=== PATIENT | female | born 1950 | race Caucasian/White ===

== ENCOUNTER 2017-09-18 10:31 | Emergency (ER) | payer MEDICARE, MEDICAID ==
[~2017-09-18] VITALS: Ht 167.6 cm; Wt 78.0 kg
[2017-09-18 10:34] VITALS: BP 146/80
[2017-09-18] MEDS ORDERED: DULO20CA50 PO (11:33)
[2017-09-18] MEDS ORDERED: clonazepam PO (11:33)
[2017-09-18] MEDS ORDERED: zonisamide PO (11:33)
[2017-09-18] MEDS ORDERED: duloxetine PO (11:33)
[2017-09-18] MEDS ORDERED: lamotrigine PO (11:33)
[2017-09-18] MEDS ORDERED: SYN0.088T PO (11:33)
[2017-09-18] MEDS ORDERED: PENICILLIN VK PO (11:33)
[2017-09-18] MEDS ORDERED: [UNRECOGNIZED DRUG - OTHER] PO (11:33)
[2017-09-18] MEDS ORDERED: CLON-528 PO (11:33)
[2017-09-18] MEDS ORDERED: donepezil PO (11:33)
[2017-09-18] MEDS ORDERED: b12 PO (11:33)
[2017-09-18 11:37] LABS: BASOPHILS % (AUTO) 0.4 % (0-1); EOSINOPHILS # (AUTO) 0.1 X10'3 (0-0.9); EOSINOPHILS % (AUTO) 1.2 % (0-6); HEMATOCRIT 39.7 % (35.0-45.0); HEMOGLOBIN 13.7 g/dl (12.0-16.0); LYMPHOCYTES # (AUTO) 1.4 X10'3 (1.1-4.8); LYMPHOCYTES % (AUTO) 30.2 % (21-51); MEAN CORPUSCULAR HEMOGLOBIN 31.4 PG (27.0-31.0); MEAN CORPUSCULAR HGB CONC 34.5 % (33.0-36.5); MEAN CORPUSCULAR VOLUME 91.1 FL (78-98); MEAN PLATELET VOLUME 8.6 FL (7.4-10.4); MONOCYTES # (AUTO) 0.3 X10'3 (0-0.9); MONOCYTES % (AUTO) 7.5 % (2-12); NEUTROPHILS # (AUTO) 2.8 X10'3 (1.8-7.7); NEUTROPHILS % (AUTO) 60.7 % (42-75); PLATELET COUNT 218 X10'3 (140-440); RED BLOOD COUNT 4.35 X10'6 (4.20-5.60); RED CELL DISTRIBUTION WIDTH 13.8 % (11.5-14.5); WHITE BLOOD COUNT 4.6 X10'3 (4.5-11.0)
[2017-09-18 11:48] LABS: URINE AMPHETAMINE SCREEN NEGATIVE (Neg); URINE BARBITUATE SCREEN NEGATIVE (Neg); URINE BENZODIAZEPINES SCREEN NEGATIVE (Neg); URINE CANNABINOID SCREEN NEGATIVE (Neg); URINE COCAINE SCREEN NEGATIVE (Neg); URINE METHADONE SCREEN NEGATIVE (Neg); URINE OPIATE SCREEN NEGATIVE (Neg); URINE PHENCYCLIDINE SCREEN NEGATIVE (Neg)
[2017-09-18 12:01] LABS: ALANINE AMINOTRANSFERASE 25 U/L (12-78); ALBUMIN 4.3 G/DL (3.4-5.0); ALBUMIN/GLOBULIN RATIO 1.3 (1.1-1.5); ALKALINE PHOSPHATASE 70 IU/L (46-116); ANION GAP 8 (8-16); ASPARTATE AMINO TRANSFERASE 20 U/L (10-37); BILIRUBIN,TOTAL 0.5 MG/DL (0.1-1.0); BLOOD UREA NITROGEN 14 MG/DL (7-18); BUN/CREATININE RATIO 15.6 (6.6-38.0); CALCIUM 9.3 MG/DL (8.5-10.1); CHLORIDE 107 MMOL/L (99-107); GLUCOSE 94 MG/DL (70-104); POTASSIUM 3.6 MMOL/L (3.5-5.1); SODIUM 142 MMOL/L (135-145); TOTAL CARBON DIOXIDE 27.3 MMOL/L (24-32); TOTAL PROTEIN 7.6 G/DL (6.4-8.2); eGFR 62 ML/MIN
[2017-09-18 12:17] LABS: ETHANOL < 0.010 GM/DL (0.0-0.010)
[2017-09-18 12:22] LABS: CLARITY,URINE CLOUDY (Clear); COLOR,URINE YELLOW (Yellow); GLUCOSE, URINE NEGATIVE (Neg); KETONES,URINE NEGATIVE (Neg); LEUKOCYTE ESTERASE ,URINE NEGATIVE (Neg); NITRITES, URINE NEGATIVE (Neg); OCCULT BLOOD,URINE LARGE (Neg); PROTEIN,URINE NEGATIVE (Neg); UROBILINOGEN,URINE 0.2 E.U/dL (0.2-1.0)
[2017-09-18 12:30] LABS: UA COLLECTION TYPE CLN CATCH MIDSTREAM
[2017-09-18 12:31] LABS: SQUAMOUS EPITHELIAL CELL,UR FEW /LPF (FEW)
[2017-09-18 12:32] LABS: BACTERIA,URINE 1+ /HPF (Neg); RBC,URINE 50-100 /HPF (0-2); WBC,URINE 0-4 /HPF (0-4)
[2017-09-18] MEDS ORDERED: clonazePAM 0.5mg tablet PO SCH ×2 (13:00→21:00)
[2017-09-18] MEDS ORDERED: cyanocobalamin 500mcg tablet PO SCH (20:00)
[2017-09-18] MEDS ORDERED: lamoTRIgine 25mg tablet PO SCH (20:00)
[2017-09-18] MEDS ORDERED: penicillin V potassium 500mg tablet PO SCH (20:00)
[2017-09-18] MEDS ORDERED: duloxetine 20mg capsule.DR PO SCH (21:00)
[2017-09-18] MEDS ORDERED: donepezil 5mg tablet PO SCH (21:00)
[2017-09-19] MEDS ORDERED: cyanocobalamin 500mcg tablet PO SCH (08:00)
[2017-09-19] MEDS ORDERED: zonisamide 100mg capsule PO SCH (08:00)
[2017-09-19] MEDS ORDERED: [UNRECOGNIZED DRUG - OTHER] PO SCH (08:00)
[2017-09-19] MEDS ORDERED: duloxetine 20mg capsule.DR PO SCH (08:00)
[2017-09-19] MEDS ORDERED: levoTHYROXINE 88mcg tablet PO SCH (08:00)
== END 2017-09-18 17:17 ==
LOC: ER 10:32
DX: F03.90 Unspecified dementia, unspecified severity, without behavioral disturbance, psychotic disturbance, mood disturbance, and anxiety (principal); Z79.899 Other long term (current) drug therapy; F10.10 Alcohol abuse, uncomplicated; Z56.0 Unemployment, unspecified
CPT/HCPCS: 36415; 70450; 80053; 80305; 80320; 81001; 84443; 85025; 99285

== ENCOUNTER 2017-09-18 15:30 | Inpatient (IN) | payer MEDICARE, MEDICAID ==
[~2017-09-18] VITALS: Ht 165.1 cm; Wt 74.3 kg
[~2017-09-18 15:30] MED LIST: CLON-528 PO; DULO20CA50 PO; PENICILLIN VK PO; SYN0.088T PO; [UNRECOGNIZED DRUG - OTHER] PO; b12 PO; clonazepam PO; donepezil PO; duloxetine PO; lamotrigine PO; zonisamide PO
[2017-09-18 17:14] VITALS: BP 114/76
[2017-09-18 19:44] VITALS: BP 108/65
[2017-09-18] MEDS: donepezil 5mg tablet PO SCH (20:20)
[2017-09-18] MEDS: clonazePAM 0.5mg tablet PO SCH ×2 (20:21→20:24)
[2017-09-18] MEDS: duloxetine 20mg capsule.DR PO SCH (20:21)
[2017-09-18] MEDS: lamoTRIgine 25mg tablet PO SCH (20:21)
[2017-09-18] MEDS: ibuprofen 200mg tablet PO PRN (21:45)
[2017-09-19] MEDS: levoTHYROXINE 88mcg tablet PO SCH (07:30)
[2017-09-19 08:00] VITALS: BP 100/71
[2017-09-19] MEDS: duloxetine 20mg capsule.DR PO SCH ×2 (08:00→20:49)
[2017-09-19] MEDS: cyanocobalamin 500mcg tablet PO SCH (08:00)
[2017-09-19] MEDS: zonisamide 100mg capsule PO SCH (08:00)
[2017-09-19] MEDS: lamoTRIgine 25mg tablet PO SCH ×2 (08:00→20:49)
[2017-09-19] MEDS: clonazePAM 0.5mg tablet PO SCH ×4 (08:00→20:52)
[2017-09-19] MEDS ORDERED: [UNRECOGNIZED DRUG - OTHER] PO SCH (08:00)
[2017-09-19] MEDS: ibuprofen 200mg tablet PO PRN (12:06)
[2017-09-19 19:39] VITALS: BP 108/66
[2017-09-19] MEDS: donepezil 5mg tablet PO SCH (20:49)
[2017-09-19] MEDS: lactobacillus rhamnosus 10,000 MMU CELLS/CAPSULE PO SCH (20:49)
[2017-09-19] MEDS: penicillin V potassium 500mg tablet PO SCH (20:50)
[2017-09-20] MEDS: ibuprofen 200mg tablet PO PRN ×3 (04:09→16:09)
[2017-09-20] MEDS: levoTHYROXINE 88mcg tablet PO SCH (07:33)
[2017-09-20 08:19] VITALS: BP 118/62
[2017-09-20] MEDS: zonisamide 100mg capsule PO SCH (08:50)
[2017-09-20] MEDS: penicillin V potassium 500mg tablet PO SCH ×2 (08:50→20:29)
[2017-09-20] MEDS: lactobacillus rhamnosus 10,000 MMU CELLS/CAPSULE PO SCH ×2 (08:51→20:28)
[2017-09-20] MEDS: duloxetine 20mg capsule.DR PO SCH ×2 (08:51→20:29)
[2017-09-20] MEDS: cyanocobalamin 500mcg tablet PO SCH (08:51)
[2017-09-20] MEDS ORDERED: CLONAZEPAM 0.25 MG oral disentigrating tablet (ODT) PO ONE (09:30)
[2017-09-20] MEDS: lamoTRIgine 25mg tablet PO SCH ×2 (09:42→20:28)
[2017-09-20] MEDS: lamoTRIgine 100mg tablet PO SCH ×2 (09:43→20:29)
[2017-09-20] MEDS: CLONAZEPAM 0.25 MG oral disentigrating tablet (ODT) PO SCH ×2 (13:52→20:30)
[2017-09-20] MEDS: acetaminophen 325mg tablet PO PRN ×2 (13:54→21:53)
[2017-09-20 20:00] VITALS: BP 95/71
[2017-09-20] MEDS: donepezil 5mg tablet PO SCH (20:29)
[2017-09-20] MEDS: clonazePAM 0.5mg tablet PO SCH (20:30)
[2017-09-21] MEDS: levoTHYROXINE 88mcg tablet PO SCH (07:20)
[2017-09-21] MEDS: penicillin V potassium 500mg tablet PO SCH ×2 (08:17→20:35)
[2017-09-21] MEDS: lamoTRIgine 25mg tablet PO SCH ×2 (08:18→20:34)
[2017-09-21] MEDS: lamoTRIgine 100mg tablet PO SCH ×2 (08:18→20:34)
[2017-09-21] MEDS: lactobacillus rhamnosus 10,000 MMU CELLS/CAPSULE PO SCH ×2 (08:19→20:34)
[2017-09-21] MEDS: CLONAZEPAM 0.25 MG oral disentigrating tablet (ODT) PO SCH ×3 (08:19→20:35)
[2017-09-21] MEDS: cyanocobalamin 500mcg tablet PO SCH (08:19)
[2017-09-21] MEDS: duloxetine 20mg capsule.DR PO SCH ×2 (08:19→20:35)
[2017-09-21] MEDS: zonisamide 100mg capsule PO SCH (08:20)
[2017-09-21 08:58] VITALS: BP 103/66
[2017-09-21] MEDS: acetaminophen 325mg tablet PO PRN (12:34)
[2017-09-21] MEDS: ibuprofen 200mg tablet PO PRN (19:04)
[2017-09-21 20:00] VITALS: BP 109/68
[2017-09-21] MEDS: clonazePAM 0.5mg tablet PO SCH (20:35)
[2017-09-21] MEDS: donepezil 5mg tablet PO SCH (20:35)
[2017-09-22 07:52] VITALS: BP 114/64
[2017-09-22] MEDS: lactobacillus rhamnosus 10,000 MMU CELLS/CAPSULE PO SCH ×2 (08:32→21:16)
[2017-09-22] MEDS: cyanocobalamin 500mcg tablet PO SCH (08:32)
[2017-09-22] MEDS: lamoTRIgine 25mg tablet PO SCH ×2 (08:33→21:14)
[2017-09-22] MEDS: lamoTRIgine 100mg tablet PO SCH ×2 (08:33→21:16)
[2017-09-22] MEDS: levoTHYROXINE 88mcg tablet PO SCH (08:33)
[2017-09-22] MEDS: duloxetine 20mg capsule.DR PO SCH ×2 (08:34→21:15)
[2017-09-22] MEDS: zonisamide 100mg capsule PO SCH (08:34)
[2017-09-22] MEDS: penicillin V potassium 500mg tablet PO SCH ×3 (08:34→21:26)
[2017-09-22] MEDS: CLONAZEPAM 0.25 MG oral disentigrating tablet (ODT) PO SCH ×3 (08:35→21:14)
[2017-09-22] MEDS: ibuprofen 200mg tablet PO PRN ×2 (08:50→19:20)
[2017-09-22 19:00] VITALS: BP 117/67
[2017-09-22] MEDS: donepezil 5mg tablet PO SCH (21:16)
[2017-09-22] MEDS: clonazePAM 0.5mg tablet PO SCH (21:17)
[2017-09-23] MEDS: cyanocobalamin 500mcg tablet PO SCH (07:57)
[2017-09-23] MEDS: lamoTRIgine 25mg tablet PO SCH ×2 (07:57→20:47)
[2017-09-23] MEDS: lamoTRIgine 100mg tablet PO SCH ×2 (07:57→20:47)
[2017-09-23] MEDS: levoTHYROXINE 88mcg tablet PO SCH (07:58)
[2017-09-23] MEDS: lactobacillus rhamnosus 10,000 MMU CELLS/CAPSULE PO SCH ×2 (07:58→20:48)
[2017-09-23] MEDS: duloxetine 20mg capsule.DR PO SCH ×2 (07:58→20:47)
[2017-09-23] MEDS: CLONAZEPAM 0.25 MG oral disentigrating tablet (ODT) PO SCH ×3 (07:58→20:47)
[2017-09-23] MEDS: zonisamide 100mg capsule PO SCH (07:59)
[2017-09-23] MEDS: acetaminophen 325mg tablet PO PRN ×2 (07:59→20:48)
[2017-09-23 08:00] VITALS: BP 115/76
[2017-09-23] MEDS ORDERED: penicillin V potassium 500mg tablet PO ONE ×2 (08:00→21:00)
[2017-09-23] MEDS: ibuprofen 200mg tablet PO PRN ×2 (14:09→20:52)
[2017-09-23 19:23] VITALS: BP 102/61
[2017-09-23] MEDS: penicillin V potassium 500mg tablet PO SCH (20:00)
[2017-09-23] MEDS: clonazePAM 0.5mg tablet PO SCH (20:47)
[2017-09-23] MEDS: donepezil 5mg tablet PO SCH (20:47)
[2017-09-24] MEDS: lamoTRIgine 100mg tablet PO SCH ×2 (07:58→21:01)
[2017-09-24] MEDS: lamoTRIgine 25mg tablet PO SCH ×2 (07:58→20:59)
[2017-09-24] MEDS: penicillin V potassium 500mg tablet PO SCH ×2 (07:59→20:58)
[2017-09-24] MEDS: cyanocobalamin 500mcg tablet PO SCH (07:59)
[2017-09-24 08:00] VITALS: BP 100/66
[2017-09-24] MEDS: duloxetine 20mg capsule.DR PO SCH ×2 (08:00→21:00)
[2017-09-24] MEDS: lactobacillus rhamnosus 10,000 MMU CELLS/CAPSULE PO SCH ×2 (08:00→20:58)
[2017-09-24] MEDS: CLONAZEPAM 0.25 MG oral disentigrating tablet (ODT) PO SCH ×3 (08:00→21:00)
[2017-09-24] MEDS: levoTHYROXINE 88mcg tablet PO SCH (08:00)
[2017-09-24] MEDS: zonisamide 100mg capsule PO SCH (08:47)
[2017-09-24] MEDS: ibuprofen 200mg tablet PO PRN ×2 (10:50→21:28)
[2017-09-24 19:52] VITALS: BP 125/72
[2017-09-24] MEDS: clonazePAM 0.5mg tablet PO SCH (21:04)
[2017-09-25] MEDS: levoTHYROXINE 88mcg tablet PO SCH (07:27)
[2017-09-25 08:00] VITALS: BP 119/78
[2017-09-25] MEDS: penicillin V potassium 500mg tablet PO SCH ×2 (08:08→20:37)
[2017-09-25] MEDS: lamoTRIgine 25mg tablet PO SCH ×2 (08:09→20:38)
[2017-09-25] MEDS: lactobacillus rhamnosus 10,000 MMU CELLS/CAPSULE PO SCH ×2 (08:09→20:39)
[2017-09-25] MEDS: lamoTRIgine 100mg tablet PO SCH ×2 (08:09→20:38)
[2017-09-25] MEDS: CLONAZEPAM 0.25 MG oral disentigrating tablet (ODT) PO SCH ×3 (08:09→20:37)
[2017-09-25] MEDS: cyanocobalamin 500mcg tablet PO SCH (08:09)
[2017-09-25] MEDS: duloxetine 20mg capsule.DR PO SCH ×2 (08:09→20:40)
[2017-09-25] MEDS: zonisamide 100mg capsule PO SCH (08:09)
[2017-09-25] MEDS: ibuprofen 200mg tablet PO PRN (19:07)
[2017-09-25 20:00] VITALS: BP 112/74
[2017-09-25] MEDS: clonazePAM 0.5mg tablet PO SCH (20:39)
[2017-09-25] MEDS ORDERED: traZODone 50mg tablet PO SCH (21:40)
[2017-09-26] MEDS: penicillin V potassium 500mg tablet PO SCH ×2 (07:59→20:30)
[2017-09-26] MEDS: lamoTRIgine 100mg tablet PO SCH ×2 (07:59→20:30)
[2017-09-26] MEDS: cyanocobalamin 500mcg tablet PO SCH (07:59)
[2017-09-26 08:00] VITALS: BP 112/80
[2017-09-26] MEDS: CLONAZEPAM 0.25 MG oral disentigrating tablet (ODT) PO SCH ×3 (08:00→20:30)
[2017-09-26] MEDS: lactobacillus rhamnosus 10,000 MMU CELLS/CAPSULE PO SCH ×2 (08:00→20:30)
[2017-09-26] MEDS ORDERED: sertraline 50mg tablet PO SCH (08:00)
[2017-09-26] MEDS ORDERED: lisinopril 20mg tablet PO SCH (08:00)
[2017-09-26] MEDS: lamoTRIgine 25mg tablet PO SCH ×2 (08:00→20:30)
[2017-09-26] MEDS: duloxetine 20mg capsule.DR PO SCH ×2 (08:00→20:31)
[2017-09-26] MEDS: levoTHYROXINE 88mcg tablet PO SCH (08:00)
[2017-09-26] MEDS: zonisamide 100mg capsule PO SCH (08:06)
[2017-09-26] MEDS: ibuprofen 200mg tablet PO PRN (14:45)
[2017-09-26 20:30] VITALS: BP 123/65
[2017-09-26] MEDS: clonazePAM 0.5mg tablet PO SCH (20:30)
[2017-09-27 08:00] VITALS: BP 107/73
[2017-09-27] MEDS: penicillin V potassium 500mg tablet PO SCH ×2 (08:02→20:35)
[2017-09-27] MEDS: CLONAZEPAM 0.25 MG oral disentigrating tablet (ODT) PO SCH ×3 (08:03→20:36)
[2017-09-27] MEDS: duloxetine 20mg capsule.DR PO SCH ×2 (08:03→20:36)
[2017-09-27] MEDS: levoTHYROXINE 88mcg tablet PO SCH (08:03)
[2017-09-27] MEDS: lamoTRIgine 100mg tablet PO SCH ×2 (08:03→20:35)
[2017-09-27] MEDS: lamoTRIgine 25mg tablet PO SCH ×2 (08:03→20:35)
[2017-09-27] MEDS: cyanocobalamin 500mcg tablet PO SCH (08:03)
[2017-09-27] MEDS: zonisamide 100mg capsule PO SCH (08:03)
[2017-09-27] MEDS: lactobacillus rhamnosus 10,000 MMU CELLS/CAPSULE PO SCH ×2 (08:04→20:34)
[2017-09-27] MEDS: ibuprofen 200mg tablet PO PRN ×2 (09:39→19:24)
[2017-09-27 19:42] VITALS: BP 104/57
[2017-09-27] MEDS: clonazePAM 0.5mg tablet PO SCH (20:34)
[2017-09-28] MEDS: levoTHYROXINE 88mcg tablet PO SCH (07:31)
[2017-09-28 08:32] VITALS: BP 95/63
[2017-09-28] MEDS: CLONAZEPAM 0.25 MG oral disentigrating tablet (ODT) PO SCH ×2 (09:00→13:22)
[2017-09-28] MEDS: cyanocobalamin 500mcg tablet PO SCH (09:01)
[2017-09-28] MEDS: lamoTRIgine 25mg tablet PO SCH (09:01)
[2017-09-28] MEDS: lamoTRIgine 100mg tablet PO SCH (09:02)
[2017-09-28] MEDS: duloxetine 20mg capsule.DR PO SCH (09:03)
[2017-09-28] MEDS: lactobacillus rhamnosus 10,000 MMU CELLS/CAPSULE PO SCH (09:03)
[2017-09-28] MEDS: penicillin V potassium 500mg tablet PO SCH (09:04)
[2017-09-28] MEDS: zonisamide 100mg capsule PO SCH (09:04)
[2017-09-28] MEDS: ibuprofen 200mg tablet PO PRN (10:04)
[2017-09-28] MEDS ORDERED: ZONI50CA3 PO ×2 (11:42→14:38)
[2017-09-28] MEDS ORDERED: CYA500T PO ×2 (11:42→14:20)
[2017-09-28] MEDS ORDERED: PENI-88 PO ×2 (11:42→14:38)
[2017-09-28] MEDS ORDERED: clonazepam PO ×2 (11:42→14:38)
[2017-09-28] MEDS ORDERED: LAMO25TA PO (11:42)
[2017-09-28] MEDS ORDERED: LAMO100T89 PO (11:42)
[2017-09-28] MEDS ORDERED: [UNRECOGNIZED DRUG - OTHER] PO (11:42)
[2017-09-28] MEDS ORDERED: DULO40CA2 PO ×2 (11:42→14:24)
[2017-09-28] MEDS ORDERED: CLON-528 PO ×2 (11:42→14:14)
[2017-09-28] MEDS ORDERED: LACT1CAP26 PO ×2 (11:42→14:25)
[2017-09-28] MEDS ORDERED: donepezil PO ×2 (11:42→14:38)
[2017-09-28] MEDS ORDERED: DULO20CA50 PO ×2 (11:42→14:38)
[2017-09-28] MEDS ORDERED: SYN0.088T PO ×2 (11:42→14:27)
[2017-09-28] MEDS ORDERED: lamotrigine PO ×2 (11:46→14:38)
== END 2017-09-28 15:15 | disposition home or self-care (01) | DRG 885 ==
LOC: ADULT MH 15:30
PROVIDERS: ADMIT Psychiatry & Neurology Psychiatry; ATTEND Psychiatry & Neurology Psychiatry
DX: F29 Unspecified psychosis not due to a substance or known physiological condition (principal); G40.909 Epilepsy, unspecified, not intractable, without status epilepticus; S06.9X9S Unspecified intracranial injury with loss of consciousness of unspecified duration, sequela; E03.9 Hypothyroidism, unspecified; G31.84 Mild cognitive impairment of uncertain or unknown etiology; F41.9 Anxiety disorder, unspecified; I09.9 Rheumatic heart disease, unspecified; F10.10 Alcohol abuse, uncomplicated; Z79.899 Other long term (current) drug therapy; Y92.89 Other specified places as the place of occurrence of the external cause
CPT/HCPCS: 87070; 99285